=== PATIENT | male | born 2000 | race Caucasian/White ===

== ENCOUNTER 2018-12-21 17:12 | Emergency (ER) | payer OTHER ==
[2018-12-21] MEDS ORDERED: Ibuprofen 200 MG TAB ONE (18:38)
--- NOTE | 2018-12-21 18:52 | CT ---
CT HEAD WITHOUT CONTRAST: 12/21/2018 HISTORY: Injury. Trauma. Pain. Right eye swelling. COMPARISON: None. TECHNIQUE: Axial CT imaging at 5 mm intervals, from the vertex through the skull base, without contrast. FINDINGS: There is abnormal soft tissue gas adjacent to the left nasal bone and surrounding the right globe/orb it, with abnormal gas within the medial aspect of the right orbit and gas extending into the right ma sticator space. This suggests a fracture incontinuity with the paranasal sinuses. Thus, CT examinat ion of the facial bones is advised. No intracranial hemorrhage, midline shift, or mass effect. No ventricular enlargement. No displaced calvarial fracture. IMPRESSION: Abnormal gas adjacent to and within the right orbit, as detailed above. Findings suggest nonvisualiz ed fracture incontinuity with the paranasal sinuses. CT examination of the facial bones is thus advi sed. POS: [facility]
--- NOTE | 2018-12-21 18:58 | RAD ---
4 views right elbow: 12/21/2018 COMPARISON: None HISTORY: Injury, trauma, pain FINDINGS: No fracture or dislocation. No radiopaque foreign body or subcutaneous gas. The lateral exa mination demonstrates no elbow joint effusion. IMPRESSION: No acute findings.
--- NOTE | 2018-12-21 19:00 | CT ---
CT FACIAL BONES: 12/21/2018 HISTORY: Injury. Trauma. Pain. COMPARISON: None. TECHNIQUE: Axial CT imaging obtained at 2.5 mm intervals, through the facial bones, with coronal and sagittal re formatted imaging. FINDINGS: There is abnormal soft tissue gas superior to and lateral to the right orbit. There is extension int o the periorbital soft tissues as well. Soft tissue gas extends inferior to the right orbit and exte nds into the right assistant floor covering printer space. There is partial opacification of the anterior ethmoid air cells bilaterally. There is no evidence for a nasal bone fracture on either side. The zygomatic arches and the pterygoid plates are intact. There is polypoid mucosal thickening invol ving the alveolar recess of the right maxillary sinus. There is no discrete orbital floor fracture on either side. The medial orbital wall on the left is i ntact. There is a fracture involving the medial orbital wall on the right, best seen on axial image 17. There is no evidence for dislocation of either temporomandibular joint. No acute mandibular fra cture is appreciated. IMPRESSION: Fracture of the medial orbital wall on the right with associated gas within and adjacent to the right orbit, as detailed above. POS: [facility]
--- NOTE | 2018-12-21 19:12 | RAD ---
RIGHT WRIST THREE VIEWS: HISTORY: Injury to wrist. FINDINGS: The carpals appear normally aligned. No fracture identified. IMPRESSION: No acute osseous abnormality. POS: [facility]
== END 2018-12-21 21:34 | disposition home or self-care (01) ==
LOC: ERS 17:12
DX: S02.31XA Fracture of orbital floor, right side, initial encounter for closed fracture (principal); S40.021A Contusion of right upper arm, initial encounter; S00.83XA Contusion of other part of head, initial encounter; F90.9 Attention-deficit hyperactivity disorder, unspecified type; F17.210 Nicotine dependence, cigarettes, uncomplicated; Y04.0XXA Assault by unarmed brawl or fight, initial encounter
CPT/HCPCS: 70450; 70486